=== PATIENT | male | born 2000 | race Caucasian/White ===

== ENCOUNTER 2021-01-17 12:34 | Emergency (ER) | payer BC ==
[~2021-01-17] VITALS: Ht 180.3 cm; Wt 80.3 kg
--- NOTE | 2021-01-17 13:49 | NUR ---
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
--- NOTE | 2021-01-17 14:39 | NUR ---
PT RESTING IN ROOM. VS STABLE. CALL LIGHT IN PLACE. WILL CONTINUE TO MONITOR.
--- NOTE | 2021-01-17 15:16 | NUR ---
PT RESTING IN ROOM WITH EYES CLOSED. VS STABLE. CALL LIGHT IN PLACE. WILL CONTINUE TO MONITOR.
--- NOTE | 2021-01-17 15:31 | NUR ---
DR PORTILLO HAS SEEN PATIENT.
--- NOTE | 2021-01-17 16:10 | NUR ---
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
--- NOTE | 2021-01-17 16:33 | NUR ---
PT WATCHING TV IN ROOM. VS STABLE. NO ACUTE DISTRESS NOTED. CALL LIGHT IN PLACE. WILL CONTINUE TO MONITOR.
--- NOTE | 2021-01-17 16:56 | NUR ---
PT IS A&O X4. VS STABLE. PT HAS RECENTLY HAD SOME ANXIETY BUT DENIES SI AND HI. PT TO FOLLOW UP WITH [facility]. PT GIVEN INFORMATION FOR FOLLOW UP. PT HAS A RIDE HOME FROM A FRIEND. NO ACUTE DISTRESS NOTED. PT DISCHARGED PER DR PORTILLO.
[2021-01-17 16:57] VITALS: BP 127/70
== END 2021-01-17 17:01 | disposition home or self-care (01) ==
LOC: ED 16:55
DX: S00.11XA Contusion of right eyelid and periocular area, initial encounter (principal); S00.12XA Contusion of left eyelid and periocular area, initial encounter; F41.1 Generalized anxiety disorder; R06.4 Hyperventilation; F10.129 Alcohol abuse with intoxication, unspecified; F17.200 Nicotine dependence, unspecified, uncomplicated; X58.XXXA Exposure to other specified factors, initial encounter; Y93.89 Activity, other specified; Y92.89 Other specified places as the place of occurrence of the external cause; Y99.8 Other external cause status; Y90.0 Blood alcohol level of less than 20 mg/100 ml
CPT/HCPCS: 70486; 99285